=== PATIENT | male | born 1940 | race Caucasian/White ===

== ENCOUNTER → 2017-04-15 | Outpatient (CLI) | payer MEDICARE ==
[2017-04-16 15:18] LABS: PROTHROMBIN TIME 24.7 SEC (11.4-15.4)
== END ==
LOC: OD 21:16
PROVIDERS: ATTEND Specialist
DX: I48.1 Persistent atrial fibrillation (principal); Z79.01 Long term (current) use of anticoagulants
CPT/HCPCS: 36415; 85610

== ENCOUNTER → 2018-05-12 | Outpatient (CLI) | payer MEDICARE ==
[2018-05-12 11:12] LABS: INTERNATIONAL RATION (INR) 1.01; PROTHROMBIN TIME 13.8 SEC (11.4-15.4)
== END ==
LOC: OD 09:22
PROVIDERS: ATTEND Internal Medicine
DX: I34.8 Other nonrheumatic mitral valve disorders (principal); Z79.01 Long term (current) use of anticoagulants
CPT/HCPCS: 36415; 85610

== ENCOUNTER 2018-07-09 18:17 | Emergency (ER) | payer MEDICARE ==
[2018-07-09 18:24] VITALS: BP 137/81
--- NOTE | 2018-07-09 19:23 | ER Document Report ---
ED Medical Screen (RME) - General Chief Complaint: Nose Bleed Stated Complaint: NOSE BLEED Time Seen by Provider: 07/09/18 19:22 Mode of Arrival: Ambulatory Information source: Patient TRAVEL OUTSIDE OF THE [place] IN LAST 30 DAYS: No - HPI Patient complains to provider of: nosebleed Onset: This afternoon - pt. states he has hadd epistaxis from R nares since earlier this afternoon. Put wad of toilet paper in nose and now bleeding has stopped. Hasrecently stopped coumadin - Related Data Allergies/Adverse Reactions: No Known Allergies Allergy (Verified 07/09/18 19:17) Past Medical History - Past Medical History Cardiac Medical History: Reports: Hx Atrial Fibrillation Renal/ Medical History: Denies: Hx Peritoneal Dialysis Past Surgical History: Reports: Hx Cardiac Surgery - Valve repair; Aortic stent Physical Exam - Vital signs Vitals: Pulse Resp BP Pulse Ox 89 20 137/81 H 98 07/09/18 18:21 07/09/18 18:21 07/09/18 18:21 07/09/18 18:21 Course - Vital Signs Vital signs: Temp Pulse Resp BP Pulse Ox 89 20 137/81 H 98 07/09/18 18:21 07/09/18 18:21 07/09/18 18:21 07/09/18 18:21 Doctor's Discharge - Discharge Referrals: AUBREY BLANCO MD [Primary Care Provider] - Follow up as needed
[2018-07-09 20:14] LABS: ABSOLUTE BASOPHILS # (AUTO) 0.1 10^3/uL (0.0-0.2); ABSOLUTE EOSINOPHILS # (AUTO) 0.2 10^3/uL (0.0-0.6); ABSOLUTE LYMPHOCYTES (AUTO) 1.3 10^3/uL (0.5-4.7); ABSOLUTE MONOCYTES (AUTO) 0.8 10^3/uL (0.1-1.4); ABSOLUTE NEUT (AUTO) 6.1 10^3/uL (1.7-8.2); BASOPHILS % (AUTO) 1.1 % (0-2); EOSINOPHILS % (AUTO) 1.8 % (0-6); LYMPHOCYTES % (AUTO) 15.8 % (13-45); MEAN CORPUSCULAR HEMOGLOBIN 30.3 pg (27.0-33.4); MEAN CORPUSCULAR HGB CONC 34.8 g/dL (32.0-36.0); MEAN CORPUSCULAR VOLUME 87 fl (80-97); MONOCYTES % (AUTO) 9.6 % (3-13); PLATELET COUNT 181 10^3/uL (150-450); RED BLOOD COUNT 5.28 10^6/uL (4.35-5.55); RED CELL DISTRIBUTION WIDTH 14.1 % (11.5-14.0); SEGMENTED NEUTROPHILS % (AUTO) 71.7 % (42-78); TOTAL CELLS COUNTED % (AUTO) 100 %; WHITE BLOOD COUNT 8.4 10^3/uL (4.0-10.5)
[2018-07-09 20:23] LABS: ALANINE AMINOTRANSFERASE 29 U/L (21-72); ALBUMIN 4.4 g/dL (3.5-5.0); ALKALINE PHOSPHATASE 62 U/L (38-126); ANION GAP 13 (5-19); ASPARTATE AMINO TRANSFERASE 24 U/L (17-59); BILIRUBIN,DIRECT 0.2 mg/dL (0.0-0.4); BLOOD UREA NITROGEN 15 mg/dL (7-20); CALCIUM 9.7 mg/dL (8.4-10.2); CARBON DIOXIDE 26 mmol/L (22-30); CHLORIDE 103 mmol/L (98-107); GLUCOSE 115 mg/dL (75-110); POTASSIUM 4.7 mmol/L (3.6-5.0); SODIUM 141.7 mmol/L (137-145)
[2018-07-09 20:35] LABS: INTERNATIONAL RATION (INR) 0.91; PROTHROMBIN TIME 12.7 SEC (11.4-15.4)
== END 2018-07-09 22:35 | disposition home or self-care (01) ==
LOC: ER 18:17
DX: R04.0 Epistaxis (principal); Z53.20 Procedure and treatment not carried out because of patient's decision for unspecified reasons
CPT/HCPCS: 36415; 80053; 85025; 85610; 99281

== ENCOUNTER 2018-08-23 19:37 | Emergency (ER) | payer MEDICARE ==
--- NOTE | 2018-08-24 | ER Document Report ---
ED General - General Chief Complaint: Nose Bleed Stated Complaint: POSSIBLE NOSE BLEED Time Seen by Provider: 08/23/18 23:12 Notes: Patient is a 77-year-old male that presents to the emergency department for chief complaint of nosebleed. Patient states that this started around 6 PM this evening, out of his right nare. He has had 3 or 4 nosebleeds this week. He denies having hypertension, or being on any blood thinners, denies taking any aspirin either. He has had nosebleeds before, but this more frequently this week. In the past these use nasal moisturizers, but has not been using them. Denies any headaches, lightheadedness, dizziness, chest pain, shortness of breath, nausea, vomiting. Since being in triage, and had nasal packing, he has not noticed any blood in his throat, and no further bleeding from his nostril. Past Medical History: CAD, hyperlipidemia Past Surgical History: CABG Social History: Denies tobacco, alcohol or illicit drug use, lives at home with family. Family History: Reviewed and noncontributory for presenting illness Allergies: Reviewed, see documented allergy list. REVIEW OF SYSTEMS: Unless otherwise stated in this report the patient's positive and negative responses for review of systems for constitutional, eyes, ENT, cardiovascular, respiratory, gastrointestinal, neurological, genitourinary, musculoskeletal, and integumentary systems and related systems to the presenting problem are either as stated in the HPI or were not pertinent or were negative for the symptoms and/or complaints related to the presenting medical problem. PHYSICAL EXAMINATION: Vital signs reviewed, nursing noted reviewed. GENERAL: Well-appearing, well-nourished and in no acute distress. HEAD: Atraumatic, normocephalic. EYES: Eyes appear normal, extraocular movements intact, sclera anicteric, conjunctiva are normal. ENT: nares patent, oropharynx clear without exudates. Moist mucous membranes. Nasal packing was removed, no active bleeding from either nostril, on the septum of the right nares, there is a visualized vessel, but not actively bleeding, overall the septum is irritated. No blood noted in the posterior pharynx. NECK: Normal range of motion, supple without lymphadenopathy LUNGS: Breath sounds clear to auscultation bilaterally and equal. No wheezes rales or rhonchi. HEART: Regular rate and rhythm without murmurs ABDOMEN: Soft, nontender, normoactive bowel sounds. No rebound, guarding, or rigidity. No masses appreciated. EXTREMITIES: Nontender, good range of motion, no pitting or edema. NEUROLOGICAL: No focal neurological deficits. Moves all extremities spontaneously Motor and sensory grossly intact on exam. PSYCH: Normal mood, normal affect. SKIN: Warm, Dry, normal turgor, no rashes or lesions noted on exposed skin TRAVEL OUTSIDE OF THE [place] IN LAST 30 DAYS: No - Related Data Allergies/Adverse Reactions: No Known Allergies Allergy (Verified 07/09/18 19:17) Past Medical History - Social History Smoking Status: Never Smoker Family History: Reviewed & Not Pertinent - Past Medical History Cardiac Medical History: Reports: Hx Atrial Fibrillation Renal/ Medical History: Denies: Hx Peritoneal Dialysis Past Surgical History: Reports: Hx Cardiac Surgery - Valve repair; Aortic stent Physical Exam - Vital signs Vitals: Temp Pulse Resp BP Pulse Ox 97.5 F 98 18 110/67 96 08/23/18 20:31 08/23/18 20:31 08/23/18 20:31 08/23/18 20:31 08/23/18 20:31 Course - Re-evaluation Re-evalutation: Patient was seen and examined, nursing notes reviewed, vital signs reviewed, nasal packing was removed, visualized was a vessel, not actively bleeding, this was cauterized using silver nitrate, patient was monitored for an additional 30 minutes, without any further bleeding. Patient was advised if he needed to sneeze to sneeze with his mouth open, he is advised to use saline gel or nasal sprays to keep his nostril moist, and to follow-up with your nose and throat if needed. - Vital Signs Vital signs: Temp Pulse Resp BP Pulse Ox 97.4 F 88 16 115/80 96 08/24/18 00:21 08/24/18 00:21 08/24/18 00:21 08/24/18 00:21 08/24/18 00:21 Procedures - Nosebleed Procedure Right Location: Anterior Supplies used: Packing Notes: Chemical cautery used with silver nitrate, good hemostasis. Discharge - Discharge Clinical Impression: Epistaxis Condition: Stable Disposition: HOME, SELF-CARE Instructions: Nosebleed Instructions ([facility]) Additional Instructions: Please keep your nose moist, with either saline sprays, or gel, if needed please follow-up with ear nose and throat physician. Referrals: AUBREY BLANCO MD [Primary Care Provider] - Follow up in 3-5 days ALEJANDRO BENAVIDEZ DO [ASSOCIATE] - Follow up in 3-5 days
[2018-08-24 00:24] VITALS: BP 115/80
== END 2018-08-24 00:21 | disposition home or self-care (01) ==
LOC: ER 19:37
PROC: 2Y41X5Z Packing of Nasal Region using Packing Material (ICD-10-PCS; principal; 2018-08-23)
DX: R04.0 Epistaxis (principal); I25.10 Atherosclerotic heart disease of native coronary artery without angina pectoris; E78.00 Pure hypercholesterolemia, unspecified; Z95.1 Presence of aortocoronary bypass graft
CPT/HCPCS: 99283

== ENCOUNTER → 2019-09-28 | Outpatient (CLI) | payer MEDICARE ==
[2019-09-28 12:45] LABS: ARTERIAL BLOOD BASE EXCESS -2.5 mmol/L; ARTERIAL BLOOD H2CO3 1.07 mmol/L (1.05-1.35); ARTERIAL BLOOD HCO3 21.6 mmol/L (20-24); ARTERIAL BLOOD PCO2 35.7 mmHg (35-45); ARTERIAL BLOOD PO2 90.8 mmHg (80-100); ARTERIAL BLOOD TOTAL CO2 22.7 mmol/L (23-27)
[2019-09-28 12:46] LABS: ARTERIAL BLOOD FIO2 ROOM AIR
== END ==
LOC: OD 12:02
PROVIDERS: ATTEND Internal Medicine Hematology & Oncology
DX: D75.1 Secondary polycythemia (principal)
CPT/HCPCS: 36600; 82803

== ENCOUNTER 2020-05-06 13:23 | Emergency (ER) | payer MEDICARE ==
--- NOTE | 2020-05-06 13:39 | ER Document Report ---
ED Medical Screen (RME) - General Chief Complaint: Nose Bleed Stated Complaint: NOSE BLEED Time Seen by Provider: 05/06/20 13:38 Primary Care Provider: LIAM JIMENEZ MD [Primary Care Provider] - Follow up as needed Notes: This 79-year-old male presents to the emergency room today stating he had epistasis from the right nare. He has a history of the same although it has not happened in years does not take any blood thinners no recent trauma. I greeted and performed a rapid initial assessment of this patient. Comprehensive ED assessment and evaluation of the patient, analysis of test results and completion of the medical decision making process will be conducted by additional ED providers. TRAVEL OUTSIDE OF THE [place] IN LAST 30 DAYS: No - Related Data Allergies/Adverse Reactions: No Known Allergies Allergy (Verified 07/09/18 19:17) Past Medical History - Past Medical History Cardiac Medical History: Reports: Hx Atrial Fibrillation Renal/ Medical History: Denies: Hx Peritoneal Dialysis Past Surgical History: Reports: Hx Cardiac Surgery - Valve repair; Aortic stent Physical Exam - Vital signs Vitals: Temp Pulse Resp BP Pulse Ox 98.6 F 61 18 125/74 98 05/06/20 13:30 05/06/20 13:30 05/06/20 13:30 05/06/20 13:30 05/06/20 13:30 Course - Vital Signs Vital signs: Temp Pulse Resp BP Pulse Ox 98.6 F 61 18 125/74 98 05/06/20 13:30 05/06/20 13:30 05/06/20 13:30 05/06/20 13:30 05/06/20 13:30 Doctor's Discharge - Discharge Referrals: LIAM JIMENEZ MD [Primary Care Provider] - Follow up as needed
[2020-05-06] MEDS ORDERED: OXYMETAZOLINE HCL 0.05% NASAL SPRAY 15 ML BOTTLE NASL ONE (14:19)
[2020-05-06] MEDS ORDERED: SILVER NITRATE APPLICATOR 1 APPLIC STICK..EA. 10/PACKAGE TOP ONE (14:20)
[2020-05-06] MEDS ORDERED: BACITRACIN ZINC OINTMENT 15 GM TP ONE (14:20)
[2020-05-06 14:33] LABS: ABSOLUTE BASOPHILS # (AUTO) 0.1 10^3/uL (0.0-0.2); ABSOLUTE EOSINOPHILS # (AUTO) 0.1 10^3/uL (0.0-0.6); ABSOLUTE MONOCYTES (AUTO) 0.6 10^3/uL (0.1-1.4); ABSOLUTE NEUT (AUTO) 4.8 10^3/uL (1.7-8.2); EOSINOPHILS % (AUTO) 1.2 % (0-6); HEMATOCRIT 46.3 % (37.9-51.0); HEMOGLOBIN 16.1 g/dL (13.5-17.0); LYMPHOCYTES % (AUTO) 15.2 % (13-45); MEAN CORPUSCULAR HEMOGLOBIN 29.7 pg (27.0-33.4); MEAN CORPUSCULAR HGB CONC 34.8 g/dL (32.0-36.0); MEAN CORPUSCULAR VOLUME 85 fl (80-97); MONOCYTES % (AUTO) 9.4 % (3-13); PLATELET COUNT 161 10^3/uL (150-450); RED BLOOD COUNT 5.42 10^6/uL (4.35-5.55); RED CELL DISTRIBUTION WIDTH 14.4 % (11.5-14.0); SEGMENTED NEUTROPHILS % (AUTO) 73.2 % (42-78); TOTAL CELLS COUNTED % (AUTO) 100 %; WHITE BLOOD COUNT 6.5 10^3/uL (4.0-10.5)
[2020-05-06 14:41] LABS: INTERNATIONAL RATION (INR) 1.01; PROTHROMBIN TIME 13.3 SEC (11.4-15.4)
[2020-05-06 14:50] LABS: ALBUMIN 4.2 g/dL (3.5-5.0); ALKALINE PHOSPHATASE 63 U/L (38-126); ANION GAP 5 (5-19); ASPARTATE AMINO TRANSFERASE 20 U/L (17-59); BILIRUBIN,TOTAL 1.3 mg/dL (0.2-1.3); BLOOD UREA NITROGEN 20 mg/dL (7-20); CALCIUM 9.4 mg/dL (8.4-10.2); CARBON DIOXIDE 26 mmol/L (22-30); CHLORIDE 107 mmol/L (98-107); GLUCOSE 121 mg/dL (75-110); POTASSIUM 4.8 mmol/L (3.6-5.0); TOTAL PROTEIN 6.7 g/dL (6.3-8.2)
[2020-05-06] MEDS ORDERED: ONDANSETRON HCL INJ/PF 4 MG/2 ML SDV IV ONE (15:17)
[2020-05-06] MEDS ORDERED: MORPHINE SULFATE 10 MG/ML INJ IV ONE (15:18)
--- NOTE | 2020-05-06 16:06 | ER Document Report ---
Entered by ERIC TANG SCRIBE 05/06/20 1416 Acting as scribe for:AMBIKA BROOKE MD ED ENT - General Chief Complaint: Nose Bleed Stated Complaint: NOSE BLEED Time Seen by Provider: 05/06/20 13:38 Primary Care Provider: LIAM JIMENEZ MD [ACTIVE STAFF] - Follow up as needed Information source: Patient Notes: This 79-year-old male presents to the emergency department complaining of a nose bleed that began about an hour ago. Patient explains that he has had nose bleeds like this before with the last time being about a year ago. Patient said that he went to the doctor with his last nose bleed and was going cauterize his septum. Patient said that he still has yet to complete this cauterization. Patient states he did not blow his nose prior to his nose bleed. Patient said that the bleeding is coming from both nares. Patient denies fever, chills, rectal bleeding, black stools, headache, sinus congestion, nasal congestion and chest pain. Patient states that he is not on any blood thinners at this time. TRAVEL OUTSIDE OF THE [place] IN LAST 30 DAYS: No - Related Data Allergies/Adverse Reactions: No Known Allergies Allergy (Verified 07/09/18 19:17) Past Medical History - General Information source: Patient - Social History Smoking Status: Never Smoker Cigarette use (# per day): No Chew tobacco use (# tins/day): No Family History: Reviewed & Not Pertinent Patient has homicidal ideation: No - Past Medical History Cardiac Medical History: Reports: Hx Atrial Fibrillation Past Surgical History: Reports: Hx Cardiac Surgery - Valve repair; Aortic stent Review of Systems - Review of Systems Constitutional: See HPI. denies: Chills, Fever EENT: See HPI, Nose discharge - Nose bleed. denies: Nose congestion, Sinus discharge Cardiovascular: See HPI. denies: Chest pain Respiratory: No symptoms reported Gastrointestinal: No symptoms reported Genitourinary: No symptoms reported Male Genitourinary: No symptoms reported Musculoskeletal: No symptoms reported Skin: No symptoms reported Hematologic/Lymphatic: No symptoms reported Neurological/Psychological: No symptoms reported -: Yes All other systems reviewed and negative Physical Exam - Vital signs Vitals: Temp Pulse Resp BP Pulse Ox 98.6 F 61 18 125/74 98 05/06/20 13:30 06/07/20 13:30 05/06/20 13:30 05/06/20 13:30 05/06/20 13:30 - Notes Notes: Physical Exam: General: Alert, appears well. HEENT: Normocephalic. Atraumatic. PERRL. Extraocular movements intact. Right an terior nose bleed. Swollen turbinates. Neck: Supple. Non-tender. Respiratory: No respiratory distress. Clear and equal breath sounds bilaterally. Cardiovascular: Regular rate and rhythm. Abdominal: Normal Inspection. Non-tender. No distension. Normal Bowel Sounds. Back: No gross abnormalities. Extremities: Moves all four extremities. Upper extremities: Normal inspection. Normal ROM. Lower extremities: Normal inspection. No edema. Normal ROM. Neurological: Normal cognition. AAOx4. Normal speech. Psychological: Normal affect. Normal Mood. Skin: Warm. Dry. Normal color. Course - Re-evaluation Re-evalutation: 05/06/20 15:43 Patient resting comfortable after the nasal Rhino Rocket was placed. Minimal minimal drainage of serosanguineous fluid out of the right nostril at this time. 5 mL of air was used to inflate there inflatable tube with a rocket. - Vital Signs Vital signs: Temp Pulse Resp BP Pulse Ox 98.6 F 61 18 125/74 98 05/06/20 13:31 05/06/20 13:30 05/06/20 13:30 05/06/20 13:30 05/06/20 13:30 - Laboratory Result Diagrams: 05/06/20 14:20 05/06/20 14:20 Laboratory results interpreted by me: 05/06/20 05/06/20 14:20 14:20 RDW 14.4 H Est GFR (MDRD) Non-Af 57 L Glucose 121 H Laboratories essentially within normal limits. Procedures - Nosebleed Procedure Right Time completed: 03:30 Location: Anterior Supplies used: Rhinorocket Notes: Patient was cauterized anterior septal region of the right nostril due to ulcerations and active bleeding. Patient tolerated cauterizing procedure without any complications. Determined to put a Rhino Rocket in place for tamponade control of bleeding from the anterior septal region of the right nostril. Patient tolerated the Rhino Rocket tampon without any complications. Patient was given 2 mg morphine to help control sedation. Prior to insertion of nasal tampon a ribbon of bacitracin ointment was placed over the right nasal orifice just prior to insert into. Discharge - Discharge Clinical Impression: Epistaxis, recurrent Condition: Stable Disposition: HOME, SELF-CARE Additional Instructions: Nosebleed Instructions There is a significant chance of re-bleeding following a nosebleed. Proper care makes this less likely. Do not touch the nose for 24 hours. Do not blow the nose forcefully for one week. After 24 hours, gently apply Vaseline ointment to both nostrils with the tip of a finger, three times a day, for one week. It's normal to have a bloody mucous discharge for a few days. If active bleeding recurs, blow all the blood from the nose, then sit quietly and pinch the nose as firmly as possible for 10 minutes. If this does not stop the bleeding, return for further care. If packing was left in the nose and it starts to come out of the nostril, either tuck it back in or cut it off. Don't pull it out. Return for recheck and removal of the packing when instructed. Persons with frequent nosebleeds should avoid aspirin (unless prescribed for another reason). Humidity in the bedroom, and petroleum jelly applied to the nostrils at night may help. The Rhino Rocket tampon should remain in place for 3 days. We are asking that you follow-up with your nose and throat doctor for removal of the tampon is in place. Sometimes the Rhino Rocket tampon may dislodge itself and slide out and if that does occur does not a complicating problem. Provided that there is no nosebleed. Any problems in the next few days with the rocket tampon please return to the emergency department if there is any problems. We will place you on antibiotics and medications for your discomfort while wearing the tampon. Recommend Tylenol extra strength 2 tablets twice a day if needed for pain. Follow-up with [facility] ear nose [facility] throat in [facility] Prescriptions: Amoxicillin 1 tab PO TID 7 Days #21 tab Referrals: LIAM JIMENEZ MD [ACTIVE STAFF] - Follow up as needed I personally performed the services described in the documentation, reviewed and edited the documentation which was dictated to the scribe in my presence, and it accurately records my words and actions.
[2020-05-06 16:34] VITALS: BP 131/96
== END 2020-05-06 16:34 | disposition home or self-care (01) ==
LOC: ER 13:23
DX: R04.0 Epistaxis (principal); J34.0 Abscess, furuncle and carbuncle of nose
CPT/HCPCS: 99283; 96374; 96375; 36415; 85025; 85610; 80053; 30901; J2270; A9270; J2405; J3490

== ENCOUNTER 2020-05-07 23:19 | Emergency (ER) | payer MEDICARE ==
--- NOTE | 2020-05-07 23:38 | ER Document Report ---
ED Medical Screen (RME) - General Chief Complaint: Nose Bleed Stated Complaint: NOSE BLEED Time Seen by Provider: 05/07/20 23:25 Primary Care Provider: OMAYRA PEREZ MD [Primary Care Provider] - Follow up as needed Notes: Patient presents with bleeding from right nostril. Patient was here yesterday for nosebleed and had a Rhino Rocket placed at that time. Patient states that he started to have bleeding around the device earlier today. Patient denies any lightheadedness or dizziness. Patient denies any nausea or vomiting. Patient states he has noticed the sensation of blood in the back of his throat. Patient denies taking any anticoagulants. I have greeted and performed a rapid initial assessment of this patient. A comprehensive ED assessment and evaluation of the patient, analysis of test results and completion of the medical decision making process will be conducted by additional ED providers. TRAVEL OUTSIDE OF THE [place] IN LAST 30 DAYS: No - Related Data Allergies/Adverse Reactions: No Known Allergies Allergy (Verified 07/09/18 19:17) Past Medical History - Past Medical History Cardiac Medical History: Reports: Hx Atrial Fibrillation Renal/ Medical History: Denies: Hx Peritoneal Dialysis Past Surgical History: Reports: Hx Cardiac Surgery - Valve repair; Aortic stent Physical Exam - Vital signs Vitals: Temp 97.5 F 05/07/20 23:33 - General General appearance: Appears well, Alert Notes: Small amount of blood dripping from around Rhino Rocket to right nostril Course - Vital Signs Vital signs: Temp Pulse Resp BP Pulse Ox 97.5 F 74 20 125/87 H 98 05/07/20 23:33 05/07/20 23:35 05/07/20 23:35 05/07/20 23:35 05/07/20 23:35 Doctor's Discharge - Discharge Referrals: OMAYRA PEREZ MD [Primary Care Provider] - Follow up as needed
[2020-05-08 02:19] LABS: ABSOLUTE BASOPHILS # (AUTO) 0.1 10^3/uL (0.0-0.2); ABSOLUTE EOSINOPHILS # (AUTO) 0.1 10^3/uL (0.0-0.6); ABSOLUTE LYMPHOCYTES (AUTO) 1.4 10^3/uL (0.5-4.7); ABSOLUTE NEUT (AUTO) 6.6 10^3/uL (1.7-8.2); BASOPHILS % (AUTO) 1.3 % (0-2); EOSINOPHILS % (AUTO) 0.7 % (0-6); HEMATOCRIT 46.8 % (37.9-51.0); HEMOGLOBIN 16.3 g/dL (13.5-17.0); MEAN CORPUSCULAR HEMOGLOBIN 29.7 pg (27.0-33.4); MEAN CORPUSCULAR HGB CONC 34.8 g/dL (32.0-36.0); MEAN CORPUSCULAR VOLUME 85 fl (80-97); MONOCYTES % (AUTO) 11.3 % (3-13); PLATELET COUNT 174 10^3/uL (150-450); RED BLOOD COUNT 5.48 10^6/uL (4.35-5.55); RED CELL DISTRIBUTION WIDTH 14.3 % (11.5-14.0); SEGMENTED NEUTROPHILS % (AUTO) 71.7 % (42-78); TOTAL CELLS COUNTED % (AUTO) 100 %; WHITE BLOOD COUNT 9.2 10^3/uL (4.0-10.5)
--- NOTE | 2020-05-08 03:19 | ER Document Report ---
ED General - General Chief Complaint: Nose Bleed Stated Complaint: NOSE BLEED Time Seen by Provider: 05/07/20 23:25 Primary Care Provider: OMAYRA PEREZ MD [Primary Care Provider] - Follow up as needed TRAVEL OUTSIDE OF THE [place] IN LAST 30 DAYS: No - HPI Notes: 79-year-old male seen in the ED approximately 1 day prior to returning for anterior right epistaxis discharged with anterior Rhino Rocket, amoxicillin, and ENT follow-up presents with episode of recurrent right epistaxis that has resolved at time of my evaluation. Patient says that it was bleeding for less than an hour until he was triaged and then bleeding stopped. Has been waiting for 4 hours since then without any recurrent bleeding. Patient feels well, denies any shortness of breath, dizziness, chest pain, shortness of breath, pain, anticoagulation - Related Data Allergies/Adverse Reactions: No Known Allergies Allergy (Verified 07/09/18 19:17) Past Medical History - General Information source: Patient, [facility] Records - Social History Smoking Status: Unknown if Ever Smoked Family History: Reviewed & Not Pertinent Patient has homicidal ideation: No - Past Medical History Cardiac Medical History: Reports: Hx Atrial Fibrillation Renal/ Medical History: Denies: Hx Peritoneal Dialysis Past Surgical History: Reports: Hx Cardiac Surgery - Valve repair; Aortic stent Review of Systems - Review of Systems Notes: REVIEW OF SYSTEMS: CONSTITUTIONAL : Denies fever, chills, or sweats. EENT: Denies recent cold/sinus symptoms, denies throat pain CARDIOVASCULAR: Denies chest pain, [employer] RESP[employer]ATORY: Denies cough, denies shortness of breath. GASTROINTESTINAL: Denies abdominal pain, nausea/vomiting. GENITOURINARY: Denies difficulty urinating, painful urination. MUSCULOSKELETAL: Denies neck pain, back pain. SKIN: Denies rash or skin lesions. HEMATOLOGIC : Denies easy bruising or bleeding. LYMPHATIC: Denies swollen, enlarged glands. NEUROLOGICAL: Denies headache, denies change in gait. PSYCHIATRIC: Denies anxiety or stress or depression. Physical Exam - Vital signs Vitals: Temp 97.5 F 05/07/20 23:33 - Notes Notes: PHYSICAL EXAMINATION: GENERAL: Well-appearing, well-nourished and in no acute distress. HEAD: Atraumatic, normocephalic. EYES: Pupils equal round and appropriate constriction, sclera anicteric, conjunctiva are normal. ENT: Rhino Rocket in right nare, no active bleeding and the Rhino Rocket does not appear soaked, normal left nare without bleeding, no blood in oropharynx, moist mucous membranes. NECK: Normal range of motion, supple without lymphadenopathy LUNGS: Breath sounds clear to auscultation bilaterally and equal. No wheezes rales or rhonchi. HEART: Regular rate and rhythm without murmurs EXTREMITIES: Normal range of motion, moves all extremities spontaneously. NEUROLOGICAL: Awake, alert, conversing appropriately PSYCH: Normal mood, normal affect. SKIN: Warm, Dry, normal turgor, no rashes or lesions noted. Course - Re-evaluation Re-evalutation: 05/08/20 03:19 Patient had recurrent low volume short duration bleeding from right nare after placement of Rhino Rocket, but bleeding has since resolved and has been resolved for approximately 4 hours while patient has been waiting since triage. CBC drawn is stable from prior, patient given instructions to follow-up with ENT, given return to ED precautions which she demonstrated understanding of, patient ready for discharge. - Vital Signs Vital signs: Temp Pulse Resp BP Pulse Ox 97.5 F 74 20 125/87 H 98 05/07/20 23:33 05/07/20 23:35 05/07/20 23:35 05/07/20 23:35 05/07/20 23:35 - Laboratory Result Diagrams: 05/08/20 02:05 Laboratory results interpreted by me: 05/08/20 02:05 RDW 14.3 H Discharge - Discharge Clinical Impression: Epistaxis Condition: Stable Disposition: HOME, SELF-CARE Additional Instructions: Nosebleed Instructions There is a significant chance of re-bleeding following a nosebleed. Proper care makes this less likely. Do not touch the nose for 24 hours. Do not blow the nose forcefully for one week. Make an appointment with an ENT doctor to have your nasal packing removed as soon as possible. If active bleeding recurs, blow all the blood from the nose, then sit quietly and pinch the nose as firmly as possible for 10 minutes. If this does not stop the bleeding, return for further care. If packing starts to come out of the nostril, either tuck it back in or cut it off. Don't pull it out. Persons with frequent nosebleeds should avoid aspirin (unless prescribed for another reason). Humidity in the bedroom, and petroleum jelly applied to the nostrils at night may help. Call during business hours to make appointment for ENT doctor as soon as possible. Return to ED if you have bleeding that does not resolved after pinching the nose for 10 minutes, trouble breathing, dizziness, fainting, chest pain, fever, or any other worsening or alarming symptoms. Referrals: OMAYRA PEREZ MD [Primary Care Provider] - Follow up as needed ENT [Provider Group] - Follow up as needed ALEJANDRO BENAVIDEZ DO [ASSOCIATE] - Follow up as needed
[2020-05-08 03:27] VITALS: BP 116/52
== END 2020-05-08 03:35 | disposition home or self-care (01) ==
LOC: ER 23:19
DX: R04.0 Epistaxis (principal)
CPT/HCPCS: 36415; 85025; 99283